=== PATIENT | female | born 1975 | race Asian ===

== ENCOUNTER → 2025-04-22 | Day surgery (SDC) | payer OTHER ==
[2025-04-21 09:20] LABS: BASOPHILS % 0.3 % (0.0-1.0); EOSINOPHILS % 2.2 % (0.0-6.0); LYMPHOCYTES % 34.1 % (18.0-39.1); MONOCYTES % 10.8 % (4.4-11.3); NEUTROPHILS % 52.0 % (38.7-80.0); RED CELL DISTRIBUTION WIDTH 15.4 % (11.7-14.4)
[2025-04-21 10:07] LABS: EST GLOMERULAR FILTRATION RATE 107.0 ML/MIN (>=60)
[~2025-04-22] MED LIST: ACETAMINOPHEN 1000 MG/100 ML 100 ML IV ONE; ASPIRIN 325 MG TAB PO SCH; CEFAZOLIN SODIUM 2 GM ONE; CELECOXIB 100 MG CAP PO SCH; DOCUSATE SODIUM 100 MG CAP PO PRN; FAMOTIDINE 20 MG/2 ML VIAL IV ONE; FENTANYL CITRATE/PF 100MCG/2 ML INJ ONE; GABAPENTIN300 MG PO; HYDROCODON-ACE1 EA11 PO; HYDROCODONE/APAP 10MG-325MG TAB ONE; HYDROCODONE/APAP 7.5MG-325MG 1 EA TAB PO PRN; HYDROMORPHONE 1MG/1ML INJ IV ONE; HYDROMORPHONE 1MG/1ML INJ ONE; LABETALOL HCL 20 ML ONE; LACTATED RINGER'S 1,000 ML ONE; LIDOCAINE HCL 2% LOCAL INJ 5 ML SDV VIAL INJ ONE; METHOCARBAMOL750 MG PO; METOCLOPRAMIDE HCL 10 MG/2ML VIAL ONE; MIDAZOLAM HCL 2 MG/2 ML VIAL ONE; ONDANSETRON HCL INJ 2MG/ML 2ML 2 MG/ML VIAL IV PRN; ONDANSETRON HCL INJ 2MG/ML 2ML 2 MG/ML VIAL ONE; OZEMPIC2 MG/0.75 SC; PROPOFOL IV EMULSION 10 MG/ML 20 ML VIAL ONE; ROCURONIUM BROMIDE 1 ML IV ONE; ROPIVACAINE 0.5% 5 MG/ML 30 ML SDV ONE; ROPIVACAINE/EPI/CLONIDINE/KET 50 ML SYRINGE INJ ONE; SUCCINYLCHOLINE CHLORIDE 20 MG/ML 10ML VIAL ONE; SUGAMMADEX SODIUM 200 MG/2 ML VIAL IV ONE
[2025-04-22 12:54] VITALS: TEMP 98
[2025-04-22] MEDS: HYDROMORPHONE 1MG/1ML INJ IV ONE ×4 (13:00→13:20)
[2025-04-22] MEDS: HYDROCODONE/APAP 10MG-325MG TAB PO ONE (13:59)
[2025-04-22] MEDS: ONDANSETRON HCL INJ 2MG/ML 2ML 2 MG/ML VIAL IV ONE (14:00)
[2025-04-22 15:00] VITALS: BP 158/99; PULSE 66; RESP 16; O2SAT 99
== END | disposition home or self-care (01) ==
LOC: OR 08:16
PROVIDERS: ATTEND Orthopaedic Surgery Adult Reconstructive Orthopaedic Surgery
DX: M17.11 Unilateral primary osteoarthritis, right knee (principal); E11.9 Type 2 diabetes mellitus without complications; Z79.85 Long-term (current) use of injectable non-insulin antidiabetic drugs; R05.3 Chronic cough; F17.200 Nicotine dependence, unspecified, uncomplicated; E66.01 Morbid (severe) obesity due to excess calories; Z68.42 Body mass index [BMI] 45.0-49.9, adult; Z01.810 Encounter for preprocedural cardiovascular examination; Z01.812 Encounter for preprocedural laboratory examination; Z79.899 Other long term (current) drug therapy
CPT/HCPCS: 27447; 36415 ×2; 73560; 80048; 82948; 85025; 86850; 86900; 93005; 97116; 97161; C1713; C1776 ×3; J0131; J0330; J0690; J1171; J1308; J2003; J2250; J2405; J2704; J2765; J2795; J3010; J3490; J7121